=== PATIENT | male | born 1950 | race Caucasian/White ===

== ENCOUNTER 2018-01-11 06:21 | Inpatient (IN) ==
[2018-01-11] MEDS ORDERED: ceFAZolin 2 GM Premix Inj 2 GM/50 ML PIGGYBACK IV.SIG SCH (07:00)
[2018-01-11] MEDS ORDERED: Vancomycin Inj 1,000 MG in Sodium Chlor 0.9% Inj 250 ML IV.SIG SCH (07:00)
[2018-01-11] MEDS ORDERED: Chlorhexidine 4% Topical 120 APPLIC/120 ML Bottle TOPICAL SCH (07:00)
[2018-01-11 07:37] LABS: Baso # (Auto) 0.1 th/mm3 (0.0-0.2); Baso % (Auto) 0.6 % (0.0-2.0); Eos # (Auto) 0.3 th/mm3 (0.0-0.4); Hematocrit 40.4 % (39.0-51.0); Hemoglobin 13.2 gm/dL (13.0-17.0); Lymph # (Auto) 1.5 th/mm3 (1.0-4.8); Lymph % (Auto) 16.2 % (9.0-44.0); Mean Corpuscular HGB Conc 32.7 % (32.0-36.0); Mean Corpuscular Hemoglobin 28.8 pg (27.0-34.0); Mean Corpuscular Volume 88.1 fL (80.0-100.0); Mono # (Auto) 0.7 th/mm3 (0.0-0.9); Mono % (Auto) 7.6 % (0.0-8.0); Neut # (Auto) 6.9 th/mm3 (1.8-7.7); Neut % (Auto) 72.6 % (16.0-70.0); Platelet Count 193 th/mm3 (150-450); Red Blood Count 4.59 mil/mm3 (4.50-5.90); Red Cell Distribution Width 15.3 % (11.6-17.2); White Blood Count 9.5 th/mm3 (4.0-11.0)
[2018-01-11] MEDS ORDERED: Bupivacaine PF 0.5% Inj 30 ML Vial ONE (07:51)
[2018-01-11] MEDS ORDERED: SODIUM CHLOR 0.9% IV.SIG SCH (09:00)
[2018-01-11] MEDS ORDERED: Sodium Chlor 0.9% Inj 40 ML, Bupivacaine Liposo PF 1.3% Inj 20 ML P-ARTICULR SCH ×2 (09:00)
[2018-01-11] MEDS ORDERED: TRANEXAMIC ACID IV.SIG SCH (09:00)
[2018-01-11] MEDS ORDERED: Bupivacaine/Dextrose 0.75% Inj 2 ML Ampul ONE (09:23)
[2018-01-11] MEDS ORDERED: Phenylephrine/NS 1000 MCG/10ML Syringe IV.PUSH ONE (09:31)
[2018-01-11] MEDS ORDERED: Lidocaine PF 1% Inj 5 ML Syringe OTHER ONE (09:31)
[2018-01-11] MEDS ORDERED: Bupivacaine/Epinephrine Inj 0.25% 50 ML Vial ONE (09:42)
[2018-01-11] MEDS ORDERED: Propofol Inj 500 MG/50 ML Vial ONE (11:22)
[2018-01-11] MEDS ORDERED: Morphine Inj 4 MG/ML Vial IV.PUSH PRN (12:54)
[2018-01-11] MEDS ORDERED: Post-op Orders (for Pharmacy) OTHER STA (12:54)
[2018-01-11] MEDS ORDERED: Bisacodyl 10 MG Supp RECTAL PRN (12:54)
--- NOTE | 2018-01-11 13:08 | P.OP ---
- Preoperative Diagnosis (1) Osteoarthritis, knee Preoperative Diagnosis: History of left knee unicompartmental replacement. Loosened tibial component with tibial subsidence. Osteoarthritis, left knee Postoperative Diagnosis: Same Date of procedure: 01/11/18 Procedure: Revision left total knee replacement arthroplasty Anesthesia: BIJU Surgeon: Spenser Richmond MD Furnace Room Supervisor: WELLINGTON Torres and WELLINGTON Lane Operation and Findings: EBL: 100 cc INDICATION: This patient presents with severe arthritis of the left knee. The patient had a previous medial compartment resurfacing arthroplasty and has had tibial subsidence. The patient developing progressive pain and now presents for revision arthroplasty the patient now presents for surgical treatment. The patient had an aspiration before surgery which grew out a colony of E. coli in the broth. Serologic markers are normal. Because of that history, we were concerned of infection and took extra precautions during surgery to ensure that there was no evidence of infection. NOTE: Melanie Torres PA-C and Radha Lane PA-C was present for the entire surgical procedure as my ice cream freezer assistant. In my medical opinion both of those individual's skill and care was necessary for proper management of this patient. Melanie Torres started the case and Radha Lane came in toward the end of the case. TOURNIQUET TIME: [] minutes COMPANY: [employer] FEMUR: Size 6, left, posterior stabilized TIBIA: Size 6, fixed-bearing PATELLA: 38 mm POLYETHYLENE INSERT: +8 mm PROCEDURE: This patient was brought the operating room and anesthetized in the supine position. The patient was positioned supine on the table. The tourniquet was placed about the thigh, and the leg was scrubbed with alcohol followed by Hibiclens followed by ChloraPrep and draped sterilely. A timeout was done, and antibiotics were given. After exsanguination the tourniquet was inflated to 250 mmHg. An anterior incision was made and a median parapatellar arthrotomy was performed. Because of concerns of infection, a culture was taken. A frozen section was sent out which showed occasional neutrophil but no evidence of acute infection. The patella was released laterally and subluxed allowing freehand cut of the patella which was then sized. A metal cap was placed over the exposed patellar surface for protection. A steamboat pilot hole was placed in the distal femur allowing a 5 valgus cut removing 9 mm from the distal femur. The initial anterior cut was partially made. The medial resurfacing arthroplasty was loosened with osteotomes. This was very carefully removed from the surrounding cement and bone. Very carefully in a retrograde fashion the femoral component was removed. The distal femoral cut was completed. Anterior posterior and chamfer cuts were made. By the nature of the cut, the posterior medial side did not need an augment. No distal augment was necessary. The posterior stabilize osteotomy was made. The attention was directed to the tibia. Retractors were positioned. The external alignment guide was used allowing the lateral tibia to be used as referencing guide and cut utilizing an oscillating saw taking care to avoid any injury to the surrounding soft tissues. There was a defect in the medial side. The medial component was loose and was removed without difficulty. This was sized properly. Trial reduction showed that the insert fit nicely. The patient had range of motion extension 0 flexion 125. A medial release was not necessary. The bony surfaces prepared. On the back table 2 packets of methylmethacrylate were mixed. Bone grafting of the medial tibia was necessary. The components were cemented. Excess cement was removed. The tourniquet let down and hemostasis was controlled. The final plastic insert was inserted. Range of motion was the same as previously noted. A drain was brought through a separate stab incision. A field block was used with local anesthesia for pain control. The arthrotomy was repaired with interrupted #1 Vicryl suture, subcutaneous tissue 2-0 Vicryl suture and skin with metallic silviano A sterile dressing was applied. Sponge counts, needle counts and instrument counts were all correct. The patient tolerated procedure well and was taken to recovery in satisfactory condition. FINDINGS: There was subsidence of the tibial component. Sub-component bone was curetted. This is bone grafting with autogenous bone. There was no complication that was appreciated.
[2018-01-11] MEDS ORDERED: fentaNYL Citrate Inj 100 MCG/2 ML Ampul ONE ×2 (13:11)
--- NOTE | 2018-01-11 14:17 | XR ---
EXAM DATE: 01/11/2018 12:54 PM EDT AGE/SEX: 67 years / Male INDICATIONS: Post-op left knee. CLINICAL DATA: This is the patient's initial encounter. Patient reports that signs and symptoms have been present for 1 day and indicates a pain score of 1/10. MEDICAL/SURGICAL HISTORY: None. None. COMPARISON: POI, CT KNEE W/O CONTRAST, LEFT, 11/12/2017. . FINDINGS: Left knee arthroplasty in anatomic alignment. Osseous structures appear intact without significant ac chemehuevi fracture. Immediate postsurgical soft tissue changes. CONCLUSION: 1. Status post left knee arthroplasty in anatomic alignment without acute fracture. Electronically signed by: Pepe Lynn MD 01/11/2018 2:15 PM EDT
[2018-01-11] MEDS ORDERED: *Ondansetron Inj 4 MG/2 ML Vial PERIprocedural Use ONLY ONE (14:26)
--- NOTE | 2018-01-11 14:39 | P.DCO ---
- Physical Therapy Physical Therapy: Gait training (5 times per week for 2 weeks) Knee: Total knee, Protocol: Left Left Lower Extremity Weight Bearing: Weight bearing as tolerated - Nursing RN: 3 days/week x 2 weeks Nursing: Dressing changes (No dressing change, unless saturated. If saturated, alcohol dressing change daily) Dressing changes: Do not change dressing - Certification Need for Home Health services: I have seen patient Wilian Villanueva on 01/11/18. My clinical findings support the need for the requested home health care services because: Need for Home Health Services: High risk of falls Homebound Certification: I certify that my clinical findings support that this patient is homebound because: Homebound Certification: Post-op weakness
[2018-01-11] MEDS ORDERED: *morphine SULFATE 4 MG/ML PERIprocedure ONLY ONE (14:53)
[2018-01-11] MEDS: Simethicone 125 MG Chew Tablet PO SCH ×2 (19:42→22:09)
[2018-01-11] MEDS: Multivitamin/Minerals Therapeutic Tablet PO SCH (20:17)
[2018-01-11] MEDS: Senna/Docusate Sodium 8.6/50 MG Tablet PO SCH (20:18)
[2018-01-11] MEDS: glipiZIDE 5 MG Tablet PO SCH (20:18)
[2018-01-11] MEDS ORDERED: Temazepam 15 MG Capsule PO PRN (21:00)
[2018-01-12] MEDS: Loratadine 10 MG Tablet PO SCH (08:21)
[2018-01-12] MEDS: Pantoprazole Sodium 20 MG DR Tablet PO SCH (08:21)
[2018-01-12] MEDS: Multivitamin/Minerals Therapeutic Tablet PO SCH ×2 (08:21→20:39)
[2018-01-12] MEDS: Lisinopril 5 MG Tablet PO SCH (08:21)
[2018-01-12] MEDS: Meloxicam 7.5 MG Tablet PO SCH (08:21)
[2018-01-12] MEDS: glipiZIDE 5 MG Tablet PO SCH ×2 (08:21→20:38)
[2018-01-12] MEDS: Senna/Docusate Sodium 8.6/50 MG Tablet PO SCH ×2 (08:22→20:38)
[2018-01-12] MEDS: Simethicone 125 MG Chew Tablet PO SCH ×4 (09:11→20:39)
--- NOTE | 2018-01-12 21:48 | P.DS ---
Date of admission: 01/11/18 06:21 Primary care physician: PROVIDER NON STAFF Attending physician on discharge: Spenser Richmond Anticipated date of discharge: 01/13/18 Brief History from admission: Mr. Villanueva underwent left unicompartmental knee replacement arthroplasty in 2015... He began having increased pain after 1 1/2 years. Imaging studies showed possible settling of the tibial component. Further studies were performed confirming loosening and settling of the tibial component. Treatment options were discussed and surgical treatment was recommended in the form of reivisional left total knee arthroplasty. The patient agreed and now presents for the above. DS: Diagnosis - Discharge Diagnosis (1) Other mechanical complication of internal left knee prosthesis, initial encounter Status: Acute DS: Medications - Discharge Medications Prescriptions: aspirin 81 mg PO BID #60 tab hydrocodone-acetaminophen 1 tab PO Q4H PRN #42 tab PRN Reason: Acute Pain DS: Summary Hospital Course: Surgical treatment was performed on the day of admission withut complcaition. He recovered well in PACU and was transferred to [facility] orthopaedic floor. Pain was controlled with IV and oral medications. He was compliant with his brace and all physical therapy precautions. After 2 days he was found to be stable and discharged home with home health care. He was educated to pursue a high fiber diet, to ice the operative knee twice daily and to continue his physical therapy. He was given prescriptions for [place] and aspirin. - Time Spent with Patient Total time spent providing and/or coordinating discharge services: Greater than 30 minutes - Quality: VTE Deep Vein Thrombosis/Pulmonary Embolism Present on Admission: No Exam Vital signs: Vital Signs 01/12/18 00:00 01/12/18 03:40 01/12/18 04:00 Temperature 98.5 F 98.2 F Pulse Rate 82 89 Respiratory Rate 16 18 16 Blood Pressure 126/71 126/64 Pulse Oximetry 96 94 L 01/12/18 08:00 01/12/18 12:00 01/12/18 16:00 Temperature 98.9 F 99.3 F 97.6 F Pulse Rate 94 H 89 85 Respiratory Rate 18 18 14 Blood Pressure 133/56 L 131/60 123/59 L Pulse Oximetry 93 L 94 L 93 L 01/12/18 20:00 Temperature 99.3 F Pulse Rate 89 Respiratory Rate 18 Blood Pressure 109/59 L Pulse Oximetry 96 Intake & Output 10/01/12/18 01/13/18 06:59 18:59 06:59 Intake Total 1200 / 1200 1000 / 1000 Output Total 1375 / 1375 400 / 400 105 / 105 Balance -175 / -175 600 / 600 -105 / -105 Weight 111 kg Intake: IV 1200 / 1200 1000 / 1000 LR 1000 mL Inj 1,000 ML @ 80 1000 / 1000 1000 / 1000 mls/hr IV.CONT .[id number] [facility] Rx# :[id number] Ancef Inj 1,000 MG In NS Inj 200 / 200 100 ML @ 200 mls/hr IV.SIG Q6H [facility] Rx#:[id number] Output: Urine 1375 / 1375 400 / 400 105 / 105 Other: Post Void Residual 0 # Voids 1 # Incontinent Voids 0 # Urine Diapers 0 Date of Last Bowel Movement 01/10/18 01/10/18 Results Procedures completed during hospitalization: Revisional left total knee arthroplasty Labs on day of discharge: Preliminary micro results at discharge 01/11/18 10:35 Wound Culture - Preliminary Tissue - Knee No growth in 24 hours 01/11/18 10:35 Wound Culture - Preliminary Tissue - Knee No growth in 24 hours - Impressions ITS Impressions Knee X-Ray 01/11/18 12:54 CONCLUSION: 1. Status post left knee arthroplasty in anatomic alignment without acute fracture. Discharge Plan - Discharge Disposition Patient Disposition: /Home Health Service - Discharge Condition Condition: Good - Discharge Order Discharge Orders: Discharge Order (Routine); Ordered 01/13/18 Ordered By: Spenser Richmond - Discharge Details Anticipated Discharge Date: 01/12/18 - Physicians Team Primary Care Provider: NON STAFF,PROVIDER Attending Provider: Spenser Richmond Other Providers: ; [facility]ency - Rxs /Orders / Referrals /Forms Prescriptions: New aspirin 81 mg Tablet,Chewable 81 mg PO BID Qty: 60 RF: 0 hydrocodone-acetaminophen 7.5-325 mg Tablet 1 tab PO Q4H PRN (Reason: Acute Pain) Qty: 42 RF: 0 Continue amoxicillin 500 mg Capsule 2,000 mg PO ONCE calcium polycarbophil [Fiber-Tabs] 625 mg Tablet 2 tab PO DAILY fexofenadine 180 mg Tablet 180 mg PO DAILY glipizide 5 mg Tablet 5 mg PO BID glucosamine sulfate [Glucosamine] 500 mg Tablet 500 mg PO DAILY lisinopril 5 mg Tablet 5 mg PO DAILY meloxicam 7.5 mg Tablet 7.5 mg PO DAILY metformin 1,000 mg Tablet 1,000 mg PO BID nxorutcqihjk-[id number]-FA-vit K [Adults Multivitamin] 18 mg iron-400 mcg-25 mcg Tablet 1 tab PO DAILY omeprazole 20 mg Capsule,Delayed Release(Dr/Ec) 20 mg PO DAILY potassium 99 mg Tablet 99 mg PO DAILY simethicone [Gas-X Extra Strength] 125 mg Capsule 125 mg PO QID Discontinued aspirin [Adult Low Dose Aspirin] 81 mg Tablet,Delayed Release (Dr/Ec) 81 mg PO DAILY Ambulatory Orders / Order Sets / DME: Adjustable Commode 3-in-1 (1 each) (Routine) Location: Determined by Patient Ordered By: Spenser Richmond Walker With Front Wheels (1 each) (Routine) Location: Determined by Patient Ordered By: Spenser Richmond Referrals: NON STAFF,PROVIDER [Primary Care Provider] - See Instructions - Discharge Instructions Patient Printed Instructions: Hydrocodone/Acetaminophen (By mouth), Aspirin ( By mouth), How to Choose and Use a Walker (GEN), Regular Diet (DC), Revision Total Joint Arthroplasty (DC) Additional Instructions: TAKE MEDICATIONS PRESCRIBED FOLLOW UP SCHEDULED - Post Discharge Care Plan Care Plan Goals: Discharge Care Plan Goals for Total Knee Replacement You have undergone revisional left total knee arthroplasty. Your doctor removed your previous prothesis and revised it to an full knee replacement in order to relieve pain and restore movement. Here are some goals to help you heal well. Directions to Meet your Goals: 1. Activity & Exercises: * Take pain medicine as directed by your doctor. * Sit in chairs with arms. The arms make it easier for you to stand up or sit down. * Dont sit for more than 30 to 45 minutes at one time. * Nap if you are tired, but dont stay in bed all day. * Sleep with a pillow under your ankle, not your knee. Be sure to change the position of your leg during the night. * Wear the support stockings you were given in the hospital as directed by your surgeon. 2. Prevent Falls/Injury: The gutiérrez to successful recovery is movement with walking and exercising your knee as directed by your doctor. * Arrange your household to keep the items you need handy. Keep everything else out of the way. * Remove items that may cause you to fall, such as throw rugs and electrical cords. * Use nonslip bath mats, grab bars, an elevated toilet seat, and a shower chair in your bathroom * Sit on a shower stool or chair when you shower to keep from falling. * Until your balance, flexibility, and strength improve, use a cane, crutches, a walker, handrails, or someone to help you. * Keep your hands free by using a backpack, veronica pack, apron, or pockets to carry things * Walk up and down stairs with support. Try one step at a time. Use the railing if possible. * Dont drive until your doctor says its OK. * Dont drive while you are taking opioid pain medicine. 3. Precautions: * Prevent infection. Any infection will need to be treated immediately. Call your doctor right away if you think you might have an infection. * Tell your dentist that you have an artificial joint and take antibiotics as prescribed before any dental work. * Tell all your healthcare providers about your artificial joint before any medical procedure. * Maintain a healthy weight. Get help to lose any extra pounds. Added body weight puts stress on the knee. * Your medications may include blood-thinning medicine to prevent blood clots or antibiotics to prevent infection-prevent any falls or cuts 4. Incision Care: * Prevent infection by washing your hands often. If an infection occurs, it will need to be treated right away. * Call your doctor right away if you think you may have an infection. Symptoms include a fever or an incision that leaks white, green, or yellow fluid. * Don't soak your incision in water until your doctor says its OK. This means no hot tubs, bathtubs, or swimming pools. * Follow your doctor's instructions for changing the dressing. * Dont rub the incision, or apply creams or lotions to it. * If you notice any redness or drainage around the bandage site, contact your surgeon's office immediately. 5. Follow-Up: Do Not miss your follow-up appointment. Keep up with all your appointments and yearly check ups When to call your doctor: Call your doctor right away if you have: Fever of 100.4F (38C) or higher, or as directed by your doctor Shaking chills Stiffness, or inability to move the knee Increased swelling in your leg Increased redness, tenderness, or swelling in or around the knee incision Drainage from the knee incision Increased knee pain Call 911: Call 911 right away if you have: Chest pain Shortness of breath Any pain or tenderness in your calf
--- NOTE | 2018-01-12 21:52 | P.PNOP ---
Subjective Interval history: Patient notes mild-moderate left knee pain. Range of motion seems 'a little better'. He denies any new radiating leg pain. Questions about surgery. No chest pain or shortness of breath. Physical Exam Vital signs: Vital Signs 01/12/18 00:00 01/12/18 03:40 01/12/18 04:00 Temperature 98.5 F 98.2 F Pulse Rate 82 89 Respiratory Rate 16 18 16 Blood Pressure 126/71 126/64 Pulse Oximetry 96 94 L 01/12/18 08:00 01/12/18 12:00 01/12/18 16:00 Temperature 98.9 F 99.3 F 97.6 F Pulse Rate 94 H 89 85 Respiratory Rate 18 18 14 Blood Pressure 133/56 L 131/60 123/59 L Pulse Oximetry 93 L 94 L 93 L 01/12/18 20:00 Temperature 99.3 F Pulse Rate 89 Respiratory Rate 18 Blood Pressure 109/59 L Pulse Oximetry 96 Intake & Output 01/12/18 01/12/18 01/13/18 06:59 18:59 06:59 Intake Total 1200 / 1200 1000 / 1000 Output Total 1375 / 1375 400 / 400 105 / 105 Balance -175 / -175 600 / 600 -105 / -105 Weight 111 kg Intake: IV 1200 / 1200 1000 / 1000 LR 1000 mL Inj 1,000 ML @ 80 1000 / 1000 1000 / 1000 mls/hr IV.CONT .[id number] [facility] Rx# :[id number] Ancef Inj 1,000 MG In NS Inj 200 / 200 100 ML @ 200 mls/hr IV.SIG Q6H [facility]EN[facility] Rx#:[id number] Output: Urine 1375 / 1375 400 / 400 105 / 105 Other: Post Void Residual 0 # Voids 1 # Incontinent Voids 0 # Urine Diapers 0 Date of Last Bowel Movement 01/10/18 01/10/18 Narrative: Patient in restroom NAD RN at bedside Left LE Knee dressing intact, mild swelling, no erythema +motor intact distal, +sens, +nvi Neg homans - Constitutional no acute distress Results - Labs CBC & Chem 7: 01/11/18 07:25 Microbiology 01/11/18 10:35 Tissue - Knee Acid Fast Bacilli Smear - Final No acid fast bacilli seen 01/11/18 10:35 Tissue - Knee Acid Fast Bacilli Smear - Final No acid fast bacilli seen 01/11/18 10:35 Tissue - Knee Gram Stain - Final 01/11/18 10:35 Tissue - Knee Wound Culture - Preliminary No growth in 24 hours 01/11/18 10:35 Tissue - Knee Gram Stain - Final 01/11/18 10:35 Tissue - Knee Wound Culture - Preliminary No growth in 24 hours 01/11/18 10:35 Tissue - Knee Fungal Smear - Final No fungal elements seen 01/11/18 10:35 Tissue - Knee Fungal Smear - Final No fungal elements seen - Procedures Revisional left total knee arthroplasty Assessment and Plan - Ortho Post Op Day # 1 - Problem List (1) Other mechanical complication of internal left knee prosthesis, initial encounter Code(s): T84.093A - Other mechanical complication of internal left knee prosthesis, initial encounter Status: Acute - Assessment and Plan pod#1 s/p Revisional left TKA Pain moderately controlled. Taking Hardy. PT - WBAT LLE. TKA protocol. CKS when in bed. Walker assist. Hold dressing changes unless saturated. ASA 81mg bid. Ice operative leg bid. D/C planning, [facility] likely thurs. Has DME from previous surgery.
[2018-01-13 00:17] VITALS: O2SAT 94
[2018-01-13] MEDS: Simethicone 125 MG Chew Tablet PO SCH (08:15)
[2018-01-13] MEDS: Lisinopril 5 MG Tablet PO SCH (08:15)
[2018-01-13] MEDS: Meloxicam 7.5 MG Tablet PO SCH (08:15)
[2018-01-13] MEDS: Multivitamin/Minerals Therapeutic Tablet PO SCH (08:15)
[2018-01-13] MEDS: Senna/Docusate Sodium 8.6/50 MG Tablet PO SCH (08:15)
[2018-01-13] MEDS: Loratadine 10 MG Tablet PO SCH (08:15)
[2018-01-13] MEDS: Pantoprazole Sodium 20 MG DR Tablet PO SCH (08:15)
[2018-01-13] MEDS: glipiZIDE 5 MG Tablet PO SCH (08:15)
--- NOTE | 2018-01-13 08:28 | P.PNOP ---
Subjective Interval history: He continues to do well. Pain 'actually a little better than before surgery'. He is very pleased. He feels is motion is already improved. Ready for d/c home. No other complaints or concerns. Physical Exam Vital signs: Vital Signs 01/12/18 12:00 01/12/18 16:00 01/12/18 20:00 Temperature 99.3 F 97.6 F 99.3 F Pulse Rate 89 85 89 Respiratory Rate 18 14 18 Blood Pressure 131/60 123/59 L 109/59 L Pulse Oximetry 94 L 93 L 96 01/13/18 00:00 Temperature 99.3 F Pulse Rate 90 Respiratory Rate 17 Blood Pressure 129/62 Pulse Oximetry 94 L Intake & Output 01/12/18 01/13/18 01/13/18 18:59 06:59 18:59 Intake Total 1000 / 1000 Output Total 400 / 400 3230 / 3230 Balance 600 / 600 -3230 / -3230 Weight 111.5 kg Intake: IV 1000 / 1000 LR 1000 mL Inj 1,000 ML @ 80 1000 / 1000 mls/hr IV.CONT .[id number] [facility] Rx# :[id number] Output: Urine 400 / 400 3230 / 3230 Other: Post Void Residual 0 # Voids 1 # Incontinent Voids 0 # Urine Diapers 0 Date of Last Bowel Movement 01/10/18 01/10/18 Narrative: Sitting up in bed NAD RN at bedside Left LE Knee dressing intact, mild swelling, no erythema +motor intact distal, +sens, +nvi Neg homans - Constitutional no acute distress Results - Labs CBC & Chem 7: 01/11/18 07:25 Microbiology 01/11/18 10:35 Tissue - Knee Acid Fast Bacilli Smear - Final No acid fast bacilli seen 01/11/18 10:35 Tissue - Knee Acid Fast Bacilli Smear - Final No acid fast bacilli seen 01/11/18 10:35 Tissue - Knee Gram Stain - Final 01/11/18 10:35 Tissue - Knee Wound Culture - Preliminary No growth in 24 hours 01/11/18 10:35 Tissue - Knee Gram Stain - Final 01/11/18 10:35 Tissue - Knee Wound Culture - Preliminary No growth in 24 hours 01/11/18 10:35 Tissue - Knee Fungal Smear - Final No fungal elements seen 01/11/18 10:35 Tissue - Knee Fungal Smear - Final No fungal elements seen - Procedures Revisional left total knee arthroplasty Assessment and Plan - Ortho Post Op Day # 2 - Problem List (1) Other mechanical complication of internal left knee prosthesis, initial encounter Code(s): T84.093A - Other mechanical complication of internal left knee prosthesis, initial encounter Status: Acute - Assessment and Plan pod#2 s/p Revisional left TKA He continues to improved. Pain well controlled. Ortho stable. Ok to d/c home w [facility] today after PT. PO pain meds as needed. PT - WBAT LLE. TKA protocol. CKS when in bed. Walker assist. Hold dressing changes unless saturated. ASA 81mg bid. Ice operative leg bid. F/U in 2 weeks as scheduled. DME written.
[2018-01-13 09:31] VITALS: BP 129/63; PULSE 84; RESP 19; TEMP 98
== END 2018-01-13 09:37 | disposition home health service (06) ==
LOC: HSDI 06:21 → N06 15:48
PROVIDERS: ADMIT Orthopaedic Surgery Orthopaedic Surgery of the Spine; ATTEND Orthopaedic Surgery Orthopaedic Surgery of the Spine